=== PATIENT | male | born 1995 | race Two or more races ===

== ENCOUNTER 2019-02-24 18:05 | Emergency (ER) | payer MEDICAID ==
[~2019-02-24] VITALS: Ht 180.3 cm; Wt 125.0 kg
[2019-02-24] MEDS ORDERED: TETANUS, DIPHTHERIA, PERTUSSIS VAC/PF 0.5ML (>7YR OLD) IM ONE (19:00)
[2019-02-24 19:48] LABS: HEMOGLOBIN. 11.2 g/dL (14.0-18.0); MEAN CORPUSCULAR HEMOGLOBIN 18.1 pg (28.0-32.0); MEAN CORPUSCULAR VOLUME 58.2 fL (80.0-94.0); MEAN PLATELET VOLUME 8.6 fl (7.4-10.4); PLATELET 321 x1000/uL (130-400); RED BLOOD CELL COUNT 6.18 mill/uL (4.7-6.1); RED CELL DISTRIBUTION WIDTH 17.1 % (11.6-14.6)
[2019-02-24 19:53] LABS: CHLORIDE 106 mEq/L (98-107)
[2019-02-24] MEDS ORDERED: IOHEXOL-300 100 ML BOTTLE ONE (21:05)
[2019-02-24 21:49] LABS: CLARITY URINE CLEAR (CLEAR); COLOR URINE YELLOW (YELLOW); KETONES URINE 2+ (NEGATIVE); LEUKOCYTE ESTERASE URINE NEGATIVE (NEGATIVE); NITRITE URINE NEGATIVE (NEGATIVE); OCCULT BLOOD URINE NEGATIVE (NEGATIVE); PROTEIN URINE NEGATIVE (NEGATIVE); SPECIFIC GRAVITY URINE 1.074 (1.005-1.030); UROBILINOGEN URINE 0.2 E.U./dL (0.2-1.0)
[2019-02-24 22:33] LABS: PLATELET ESTIMATE NORMAL
[2019-02-24] MEDS ORDERED: MORPHINE SULFATE 2 MG/ML CPJ (NOT FOR IM USE) IV ONE (23:00)
[2019-02-25 03:19] VITALS: BP 125/71
== END 2019-02-25 04:19 | disposition short-term general hospital (02) ==
LOC: ER 18:05
DX: S20.319A Abrasion of unspecified front wall of thorax, initial encounter (principal); S80.811A Abrasion, right lower leg, initial encounter; S80.212A Abrasion, left knee, initial encounter; Z88.0 Allergy status to penicillin; V43.52XA Car driver injured in collision with other type car in traffic accident, initial encounter; Y93.89 Activity, other specified; Y92.488 Other paved roadways as the place of occurrence of the external cause
CPT/HCPCS: 36415; 71260; 73560; 73590; 74177; 80053; 81003; 84484; 85025; 90471; 90715; 93005; 96374; 99285; J2270; Q9967